=== PATIENT | male | born 1990 | race American Indian/Alaskan Native ===

== ENCOUNTER 2019-05-07 05:20 | Inpatient (IN) | payer MEDICAID ==
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
[2019-05-07] MEDS ORDERED: ONDANSETRON 4 MG/2 ML INJ IV ONE (06:56)
[2019-05-07] MEDS ORDERED: HYDROmorphone 1 MG/1 ML INJ IV ONE (06:56)
[2019-05-07] MEDS ORDERED: KETOROLAC 30 MG/1 ML INJ IV ONE (06:56)
[2019-05-07] MEDS ORDERED: TETANUS,DIPH,PERTUSS(ACELL) VACCINE 0.5 ML SYRINGE IM ONE (07:46)
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
[2019-05-07] MEDS ORDERED: LIDOCAINE 1%/EPINEPHRINE 1:100,000 VIAL (20 ML) INFILTRATI ONE (07:55)
[2019-05-07 07:57] LABS: INR 1.06 (0.87-1.13)
[2019-05-07 08:00] LABS: Basophils % (Auto) 0.2 % (0.0-1.8); Hematocrit 37.8 % (35.5-45.6); Hemoglobin 12.4 gm/dl (11.8-15.2); Lymphocytes # (Auto) 0.7 K/mm3 (1.2-5.4); Mean Corpuscular HGB Conc 33 % (32-34); Mean Corpuscular Volume 102 fl (84-94); Monocytes # (Auto) 0.6 K/mm3 (0.0-0.8); Monocytes % (Auto) 6.2 % (0.0-7.3); Platelet Count 246 K/mm3 (140-440)
[2019-05-07] MEDS ORDERED: LIDOCAINE 1%/EPINEPHRINE 1:100,000 VIAL (20 ML) INFILTRATI NR (08:00)
[2019-05-07 08:06] LABS: BUN/Creatinine Ratio 20; Blood Urea Nitrogen 16 mg/dL (9-20); Calcium 9.5 mg/dL (8.4-10.2); Hemolysis Index 9
[2019-05-07 08:09] LABS: Partial Thromboplastin Time 26.2 Sec. (24.2-36.6)
[2019-05-07] MEDS: MORPHINE 2 MG/1 ML INJ IV PRN ×2 (11:30→21:22)
[2019-05-07] MEDS: D5W/0.9% NACL 1,000 ML IV SCH ×2 (11:31→22:59)
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
[2019-05-07] MEDS: HEPARIN 5,000 UNIT/1 ML VIAL SUB-Q SCH (22:57)
[2019-05-08] MEDS: MORPHINE 2 MG/1 ML INJ IV PRN ×2 (04:23→12:34)
[2019-05-08 04:47] LABS: Basophils % (Auto) 0.3 % (0.0-1.8); Eosinophils # (Auto) 0.1 K/mm3 (0.0-0.4); Eosinophils % (Auto) 0.9 % (0.0-4.3); Hematocrit 36.9 % (35.5-45.6); Hemoglobin 12.3 gm/dl (11.8-15.2); Lymphocytes # (Auto) 1.4 K/mm3 (1.2-5.4); Mean Corpuscular HGB Conc 33 % (32-34); Mean Corpuscular Volume 102 fl (84-94); Monocytes # (Auto) 0.8 K/mm3 (0.0-0.8); Monocytes % (Auto) 11.4 % (0.0-7.3); Platelet Count 230 K/mm3 (140-440); Red Blood Count 3.62 M/mm3 (3.65-5.03); Red Cell Distribution Width 12.8 % (13.2-15.2)
[2019-05-08 04:55] LABS: INR 1.12 (0.87-1.13)
[2019-05-08 05:13] LABS: Alanine Aminotransferase 11 units/L (7-56); Albumin 3.9 g/dL (3.9-5); BUN/Creatinine Ratio 15; Blood Urea Nitrogen 12 mg/dL (9-20); Calcium 8.7 mg/dL (8.4-10.2); Hemolysis Index 4
[2019-05-08] MEDS: D5W/0.9% NACL 1,000 ML IV SCH (05:44)
[2019-05-08] MEDS: HEPARIN 5,000 UNIT/1 ML VIAL SUB-Q SCH ×2 (10:30→22:38)
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
--- NOTE | 2019-05-08 16:17 | Progress Note ---
Assessment and Plan Displaced left midshaft ulna fracture with dislocation proximal radioulnar joint.. Recommend ORIF left ulna Subjective Date of service: 05/08/19 Interval history: surgery postponed today due to lack of operating room staffing, will try again tomorrow... Objective Vital signs: Vital Signs - 12hr 05/08/19 05/08/19 05/08/19 05:38 07:41 11:26 Temperature 98.5 F 97.9 F 98.1 F Pulse Rate 68 75 68 Respiratory 17 18 18 Rate Blood Pressure 128/60 134/68 132/91 O2 Sat by Pulse 96 100 97 Oximetry - Labs CBC & BMP: 05/08/19 04:21 05/08/19 04:21 Labs: Abnormal lab results 05/08/19 05/08/19 Range/Units 04:21 04:21 RBC 3.62 L (3.65-5.03) M/mm3 MCV 102 H (84-94) fl MCH 34 H (28-32) pg RDW 12.8 L (13.2-15.2) % O'Brien % (Auto) 11.4 H (0.0-7.3) % Chloride 109.5 H (98-107) mmol/L Glucose 110 H (75-100) mg/dL
[2019-05-09] MEDS: MORPHINE 2 MG/1 ML INJ IV PRN (00:25)
[2019-05-09] MEDS: D5W/0.9% NACL 1,000 ML IV SCH (04:42)
--- NOTE | 2019-05-09 08:23 | Anesthesia Day of Surgery ---
Anesthesia Day of Surgery - Day of Surgery Patient Examined: Yes Patient H&P Reviewed: Yes Patient is NPO: Yes
[2019-05-09] MEDS ORDERED: HYDROmorphone 1 MG/1 ML INJ IV PRN (08:25)
[2019-05-09] MEDS ORDERED: ONDANSETRON 4 MG/2 ML INJ IV PRN (08:25)
--- NOTE | 2019-05-09 08:25 | Anesthesia Consultation ---
Anesthesia Consult and Med Hx Date of service: 05/09/19 - Airway Anesthetic Teeth Evaluation: Good ROM Head & Neck: Adequate Mental/Hyoid Distance: Adequate Mallampati Class: Class I Intubation Access Assessment: Good - Pre-Operative Health Status ASA Pre-Surgery Classification: ASA2 Proposed Anesthetic Plan: General - Pulmonary Hx Smoking: Yes - Central Nervous System Hx Psychiatric Problems: Yes (Bipolar and schizophrenia) - Other Systems Hx Alcohol Use: Yes
[2019-05-09] MEDS ORDERED: ACETAMINOPHEN 500 MG TAB PO NR (08:26)
[2019-05-09] MEDS ORDERED: MAGNESIUM OXIDE 400 MG TAB PO NR (08:26)
[2019-05-09] MEDS ORDERED: LIDOCAINE MPF (2%) 20 MG/1 ML VIAL 5 ML ONE (08:32)
[2019-05-09] MEDS ORDERED: PROPOFOL 200 MG/20 ML VIAL IV ONE (08:32)
[2019-05-09] MEDS ORDERED: ACETAMINOPHEN 500 MG TAB ONE (08:46)
[2019-05-09] MEDS ORDERED: MAGNESIUM OXIDE 400 MG TAB PO ONE (08:46)
[2019-05-09] MEDS ORDERED: LACTATED RINGERS 1,000 ML ONE ×2 (08:47→10:40)
[2019-05-09] MEDS ORDERED: MIDAZOLAM 2 MG/2 ML INJ ONE (08:48)
[2019-05-09] MEDS ORDERED: ceFAZolin/STERILE WATER 2 GM/20 ML SYRINGE IV NR (08:55)
[2019-05-09] MEDS ORDERED: MIDAZOLAM 2 MG/2 ML INJ IV NR (09:00)
[2019-05-09] MEDS ORDERED: LACTATED RINGERS 1,000 ML IV SCH (09:00)
[2019-05-09] MEDS ORDERED: SODIUM CHLORIDE 0.9% IRR 1,000 ML BOTTLE IR ONE (09:45)
[2019-05-09] MEDS ORDERED: BUPIVACAINE-EPINEPHRINE/PF 0.5%-1:200,000 (30 ML) VIAL INFILTRATI ONE (10:37)
[2019-05-09] MEDS ORDERED: ONDANSETRON 4 MG/2 ML INJ ONE (10:46)
[2019-05-09] MEDS ORDERED: KETOROLAC 30 MG/1 ML INJ ONE (10:46)
[2019-05-09] MEDS: HEPARIN 5,000 UNIT/1 ML VIAL SUB-Q SCH (10:48)
--- NOTE | 2019-05-09 10:53 | Procedure Note ---
Date of procedure: 05/09/19 Pre-op diagnosis: Displaced right ulna fracture Post-op diagnosis: same Procedure: Open reduction internal fixation right ulnar Procedure The patient was brought to the OR and placed on the OR table in supine position following induction intubation by anesthesia the patient's right upper extremity was prepped and draped in the usual sterile manner. A timeout procedure was done to identify the patient and the correct operative site. The arm was then e xsanguinated followed by inflation of the pneumatic tourniquet to 250 mmHg. An incision was made along the ulnar border of the forearm this was then taken down sharply through skin and subcutaneous the fracture site was seen and identified following manipulation of the fracture fragments into a more reduced position a interfragmentary screw was applied using 30 cortical measuring 22 mm in length next a 8 hole 3.5 locked plate was applied to the ulnar shaft with screws of appropriate length AP and lateral views were obtained on the table showing good reduction of the fracture and placement of the hardware next the wound was copiously irrigated and was closed in a standard routine fashion. Dressings were applied as well as a well-padded volar splint. The patient tolerated the procedure there were no complications he was sent to postanesthesia recovery postanesthesia recovery in a stable condition Anesthesia: HEATH Surgeon: YARY NUÑEZ Mechanical Designer: ALEXA DIAZ Estimated blood loss: minimal Pathology: none Condition: stable Disposition: PACU
[2019-05-09 12:39] VITALS: BP 135/96
--- NOTE | 2019-05-09 13:02 | XRay Report ---
LEFT ELBOW HISTORY: Intraoperative exam at the time of ORIF COMPARISON: 05/07/2019 TECHNIQUE: 3 views of the left elbow obtained. FINDINGS: Bones: A metal plate and screws traverse the previously described transverse fracture of the proximal ulna. Fracture fragments are in good alignment. Joint spaces: Maintained. Soft tissues: No significant abnormality. Additional findings: None. IMPRESSION: 1. Status post ORIF of proximal ulnar fracture with satisfactory alignment of fragments. Signer Name: Serafin Hills MD Signed: 05/09/2019 12:58 PM Workstation Name: [id number]
--- NOTE | 2019-05-09 14:39 | Event Note ---
Date: 05/09/19 I did not see this patient prior to discharge. Patient was discharged by Surgeon
--- NOTE | 2019-05-09 22:31 | Post Anesthesia Evaluation ---
- Post Anesthesia Evaluation Patient Participated: Yes Airway Patent: Yes Stable Respiratory Function: Yes Nausea/Vomiting: No Temp > 96.8F: Yes Pain Manageable: Yes Adequeate Hydration: Yes Anesthesia Complications: No Block Receding Appropriately: Not Applicable Patient on Ventilator: No
== END 2019-05-09 13:20 | disposition home or self-care (01) | DRG 512 ==
LOC: ED 05:20 → 3B-SURG 07:48
PROVIDERS: ADMIT Family Medicine; ATTEND Internal Medicine
PROC: 0XQCXZZ Repair Left Elbow Region, External Approach (ICD-10-PCS; 2019-05-07)
PROC: 2W3DX1Z Immobilization of Left Lower Arm using Splint (ICD-10-PCS; 2019-05-07)
PROC: 3E0234Z Introduction of Serum, Toxoid and Vaccine into Muscle, Percutaneous Approach (ICD-10-PCS; 2019-05-07)
PROC: 0PSL04Z Reposition Left Ulna with Internal Fixation Device, Open Approach (ICD-10-PCS; principal; 2019-05-09)
DX: S52.272A Monteggia's fracture of left ulna, initial encounter for closed fracture (principal); F20.9 Schizophrenia, unspecified; F31.9 Bipolar disorder, unspecified; F10.10 Alcohol abuse, uncomplicated; Y90.9 Presence of alcohol in blood, level not specified; F17.200 Nicotine dependence, unspecified, uncomplicated; V03.99XA Pedestrian with other conveyance injured in collision with car, pick-up truck or van, unspecified whether traffic or nontraffic accident, initial encounter; Y93.89 Activity, other specified; Y92.098 Other place in other non-institutional residence as the place of occurrence of the external cause; Y99.8 Other external cause status; Z23 Encounter for immunization
CPT/HCPCS: 36415; 80048; 80053; 85025; 85610; 85730; 90715; G0378; C1713; J0690; J1170; J1644; J1885; J2250; J2270; J2405; J2704; J7042; J7120